=== PATIENT | male | born 1985 | race Caucasian/White ===

== ENCOUNTER 2021-02-03 20:01 | Emergency (ER) | payer SELFPAY ==
[2021-02-03 20:10] VITALS: BP 132/84; PULSE 74; RESP 16; TEMP 37; O2SAT 98; BMI 32.3
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
[2021-02-03] MEDS: cephALEXin 500 MG CAPSULE PO (22:09)
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
== END 2021-02-03 22:17 | disposition home or self-care (01) ==
PROVIDERS: Emergency Provider Emergency Medicine Emergency Medical Services
DX: T24.231A Burn of second degree of right lower leg, initial encounter (principal); T31.0 Burns involving less than 10% of body surface; X08.8XXA Exposure to other specified smoke, fire and flames, initial encounter; Y92.9 Unspecified place or not applicable; Y93.9 Activity, unspecified; Y99.9 Unspecified external cause status
CPT/HCPCS: 99283